=== PATIENT | male | born 1980 | race Caucasian/White ===

== ENCOUNTER 2016-07-02 20:20 | Emergency (ER) | payer BC ==
[2016-07-02] MEDS ORDERED: IBUPROFEN 800 MG TABLET ONE (21:20)
--- NOTE | 2016-07-03 08:03 | RAD ---
Exams: Three-view left foot and three-view left ankle COMPARISON: None INDICATION: Fell from pickup truck, now with left ankle pain and swelling. Unable to bear weight. TECHNIQUE: AP, lateral and oblique views of the left foot and AP, lateral and oblique views of the left ankle were obtained. FINDINGS: Pronounced soft tissue swelling is seen about the ankle and dorsal aspect of the proximal foot. Overall normal bone mineralization. Alignment within the foot is maintained and ankle mortise is intact. No fracture is identified. IMPRESSION: Soft tissue swelling, however no acute osseous abnormality is identified within the left foot or ankle.
== END 2016-07-02 22:12 | disposition home or self-care (01) ==
LOC: ED 20:20
DX: S93.402A Sprain of unspecified ligament of left ankle, initial encounter (principal); V09.09XA Pedestrian injured in nontraffic accident involving other motor vehicles, initial encounter; Y92.9 Unspecified place or not applicable
CPT/HCPCS: 73610; 73630; 99283 ×2; A9270